=== PATIENT | male | born 1955 | race Caucasian/White ===

== ENCOUNTER 2016-03-08 08:57 | Emergency (ER) | payer OTHER ==
--- NOTE | 2016-03-08 09:03 | UCPHY ---
H & P Patient Type: New HPI/ROS: HPI CHIEF COMPLAINT: Head injury at work HISTORY OF PRESENT ILLNESS: This patient very pleasant 61-year-old male denies any significant medical history except for DVTs, he is not on any anticoagulation except for a small dose aspirin daily, he presents Urgent Care after he had a head injury at work. Patient states that he slipped on some type of mass that was slippery fell forward striking his head against the concrete floor no LOC. He denies headache neck pain or nausea or vomiting. Complains of localized pain to his right forehead. There is a stellate laceration present that will not need any repair. currently this time he complains of 1/10 focal pain to the right forehead hematoma. No other injuries. this patient tells me his tetanus shot is up-to-date. Past Medical History: No significant medical history except for DVT Past Surgical History: denies significant surgical history Social History: Denies use of drugs alcohol tobacco products Family History: noncontributory ROS REVIEW OF SYSTEMS: A comprehensive 10 point review of systems is otherwise negative aside from elements mentioned in the history of present illness. Exam Constitutional triage nursing summary reviewed, vital signs reviewed, awake/ alert. Eyes normal conjunctivae and sclera, EOMI, PERRLA. HENT head/neck: small right forehead hematoma superior to the right eyebrow, stellate laceration present they will not need repair, underlying hematoma, mid face stable, no malocclusion, no crepitus, no midline cervical spine pain, moist mucus membranes, no epistaxis, neck supple/ no meningismus, no raccoon eyes. Respiratory clear to auscultation bilaterally, normal breath sounds, no respiratory distress, no wheezing. Cardiovascular rate normal, regular rhythm, no murmur, no edema, distal pulses normal. Gastrointestinal soft, non-tender, no rebound, no guarding, normal bowel sounds, no distension, no pulsatile mass. Genitourinary no CVA tenderness. Musculoskeletal no midline vertebral tenderness, full range of motion, no calf swelling, no tenderness of extremities, no meningismus, good pulses, neurovascularly intact. Skin pink, warm, & dry, no rash, skin atraumatic. Neurologic awake, alert and oriented x 3, AAOx3, moves all 4 extremities equally, motor intact, sensory intact, CN II-XII intact, normal cerebellar, normal vision, normal speech. Psychiatric normal mood/affect. Heme/Lymph/Immune no lymphadenopathy. Differential Diagnosis: includes but is not limited to in a particular order, closed head injury, concussion, subdural bleed, traumatic subarachnoid, epidural hemorrhage, for hematoma, laceration Medical Decision Making: Patient had a CT scan of his head to rule out significant intracranial trauma specifically bleed or skull fracture. His forehead wound / laceration will need to be cleaned and dressing in place there is no evidence that this needs any sutures or repair as it is not large enough. Re-evaluation: CT scan of the Head without IV contrast. The results of the study are negative for acute traumatic injury specifically no significant bleed The study was read by Dr. John Olsen I viewed the images myself on the PACS system. 0950: I have given this patient strict return precautions he understands return to the emergency room if he develops any worsening symptoms questions or concerns includes worsening headache, fever, vomiting questions about his lesion. His CT scan was negative for anything acute in terms of trauma. There is soft tissue Forehead swelling. - Family History Significant Family History: No pertinent family hx Constitutional: Initial Vital Signs Temperature (C) 36.7 C 03/08/16 09:12 Heart Rate 66 03/08/16 09:12 Respiratory Rate 16 03/08/16 09:12 Blood Pressure 142/85 H 03/08/16 09:12 O2 Sat (%) 97 03/08/16 09:12 O2 Delivery Mode Room Air Allergies/Adverse Reactions: No Known Allergies Allergy (Unverified 03/08/16 09:12) Home Medications: Medication Instructions Recorded Aspirin 81mg (*) 03/08/16 Departure - Departure Disposition: Home, Routine, Self-Care Clinical Impression: Head injury Qualifiers: Encounter type: initial encounter Qualifier Code: (S09.90XA) Unspecified injury of head, initial encounter Concussion Qualifiers: Encounter type: initial encounter Loss of consciousness presence/duration: without LOC Qualifier Code: (S06.0X0A) Concussion without loss of consciousness , initial encounter Traumatic hematoma of forehead Qualifiers: Encounter type: initial encounter Qualifier Code: (S00.83XA) Contusion of other part of head, initial encounter Condition: Good Instructions: Contusion in Adults (ED), Hematoma (ED), Facial Contusion (ED), Concussion (ED), Head Injury (ED) Additional Instructions: 1. return emergency room if he develops any worsening symptoms questions or concerns includes worsening headache, vomiting, questions concerns bite wound. Please keep your wound clean, covered, dry and intact. You may get warm soapy water over this. Referrals: [place],. [Primary Care Provider] - As per Instructions - PQRS PQRS Measurement: n/a
[2016-03-08 09:17] VITALS: BP 142/85; PULSE 66; RESP 16; TEMP 98.1; O2SAT 97
--- NOTE | 2016-03-08 09:57 | CT ---
CT Head Without Contrast History: Fall, right forehead abrasion. Comparison: None available. Technique: Axial unenhanced images were obtained from the vertex through the skull base. Dose reducti on techniques were utilized. Findings: There is mild right frontal soft tissue swelling. Quigley-white differentiation is preserved. The ventricles and sulci are normal. No intracranial hemorrhage is identified. No extraaxial fluid collections are identified. There is no mass effect or evidence of infarct. Atherosclerotic calcifi cation is present in the distal internal carotid arteries. The skull and skull base are unremarkable. The visible paranasal sinuses and mastoid air cells are normally aerated. Impression: No acute intracranial findings. Findings discussed with Chuy Pimentel today at 0947 hours.
== END 2016-03-08 09:59 | disposition home or self-care (01) ==
LOC: CED 08:57
DX: S06.0X0A Concussion without loss of consciousness, initial encounter (principal); S00.83XA Contusion of other part of head, initial encounter; W01.0XXA Fall on same level from slipping, tripping and stumbling without subsequent striking against object, initial encounter; Y99.0 Civilian activity done for income or pay; Z86.718 Personal history of other venous thrombosis and embolism; Z79.82 Long term (current) use of aspirin
CPT/HCPCS: 70450-PO; 99204-PO; G0463-PO